=== PATIENT | female | born 1995 | race Caucasian/White ===

== ENCOUNTER 2020-03-13 02:28 | Emergency (ER) | payer OTHER, MEDICAID ==
[~2020-03-13] VITALS: Ht 167.6 cm; Wt 86.4 kg
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
--- NOTE | 2020-03-13 03:50 | NUR ---
Pt denies any thoughts of wanting to harm herself.
--- NOTE | 2020-03-13 04:00 | NUR ---
Patient brought from main ER. Patient is labile and resistant to care. Patient voides into hat. A sample was taken and sent for lab. This patient presents as developmentaly delayed. Patient requests ice water then refuses it once laying in bed. Patient is non compliant with bedside interview at this time.
[2020-03-13 04:07] LABS: BASOPHILS # (AUTO) 0.1 X10'3 (0-0.2); HEMOGLOBIN 15.1 g/dl (12.0-16.0); MEAN CORPUSCULAR VOLUME 93.4 FL (78-98)
[2020-03-13 04:09] LABS: BASOPHILS % (AUTO) 0.8 % (0-1); EOSINOPHILS % (AUTO) 0.1 % (0-6); HEMATOCRIT 44.4 % (35.0-45.0); LYMPHOCYTES # (AUTO) 2.3 X10'3 (1.1-4.8); MEAN CORPUSCULAR HEMOGLOBIN 31.7 PG (27.0-31.0); MEAN CORPUSCULAR HGB CONC 33.9 g/dL (33.0-36.5); MEAN PLATELET VOLUME 9.7 FL (7.4-10.4); MONOCYTES # (AUTO) 0.8 X10'3 (0-0.9); MONOCYTES % (AUTO) 6.3 % (2-12); NEUTROPHILS # (AUTO) 8.8 X10'3 (1.8-7.7); NEUTROPHILS % (AUTO) 73.8 % (42-75); PLATELET COUNT 151 X10'3 (140-440); RED BLOOD COUNT 4.76 X10'6 (4.20-5.60); RED CELL DISTRIBUTION WIDTH 14.9 % (11.5-14.5)
--- NOTE | 2020-03-13 04:14 | NUR ---
Nothing found on external med rec. Patient will not discuss S/I, H/I, possible hallucinations, or any other topic. Her GCS is 14 as reported by the inside sales lead.
[2020-03-13 04:42] LABS: URINE HCG NEGATIVE (NEG)
[2020-03-13 04:44] LABS: CLARITY,URINE CLEAR (Clear); COLOR,URINE YELLOW (Yellow); GLUCOSE, URINE NEGATIVE (Neg); KETONES,URINE NEGATIVE (Neg); LEUKOCYTE ESTERASE ,URINE NEGATIVE (Neg); NITRITES, URINE NEGATIVE (Neg); OCCULT BLOOD,URINE TRACE-INTACT (Neg); PH,URINE 6.5 (4.8-8.0); PROTEIN,URINE NEGATIVE (Neg)
[2020-03-13 04:51] LABS: UA COLLECTION TYPE CLN CATCH MIDSTREAM
[2020-03-13 04:52] LABS: BACTERIA,URINE 1+ /HPF (Neg); RBC,URINE 0-2 /HPF (0-2); SQUAMOUS EPITHELIAL CELL,UR FEW /LPF (FEW); WBC,URINE 0-4 /HPF (0-4)
[2020-03-13 05:17] LABS: URINE AMPHETAMINE SCREEN NEGATIVE (Neg); URINE BARBITUATE SCREEN NEGATIVE (Neg); URINE BENZODIAZEPINES SCREEN NEGATIVE (Neg); URINE CANNABINOID SCREEN POSITIVE (Neg); URINE COCAINE SCREEN NEGATIVE (Neg); URINE METHADONE SCREEN NEGATIVE (Neg); URINE OPIATE SCREEN NEGATIVE (Neg); URINE PHENCYCLIDINE SCREEN NEGATIVE (Neg)
--- NOTE | 2020-03-13 07:00 | NUR ---
Resting with eyes closed; arm band placed on patient. Was unable to state the year she was born but was able to state month and date and her age.
[2020-03-13 07:44] LABS: ALANINE AMINOTRANSFERASE 341 U/L (12-78); ALBUMIN 3.7 G/DL (3.4-5.0); ALBUMIN/GLOBULIN RATIO 1.1 (1.1-1.5); ALKALINE PHOSPHATASE 59 IU/L (46-116); ANION GAP 9 (8-16); ASPARTATE AMINO TRANSFERASE 105 U/L (10-37); BILIRUBIN,TOTAL 0.6 MG/DL (0.1-1.0); BLOOD UREA NITROGEN 11 MG/DL (7-18); BUN/CREATININE RATIO 20.8 (6.6-38.0); CALCIUM 9.1 MG/DL (8.5-10.1); CHLORIDE 105 MMOL/L (99-107); CREATININE 0.53 MG/DL (0.40-0.90); GLUCOSE 99 MG/DL (70-104); POTASSIUM 3.7 MMOL/L (3.5-5.1); SODIUM 139 MMOL/L (135-145); TOTAL CARBON DIOXIDE 24.7 MMOL/L (24-32); TOTAL PROTEIN 7.2 G/DL (6.4-8.2); eGFR > 90 ML/MIN
[2020-03-13 07:55] LABS: ETHANOL < 0.010 GM/DL (0.0-0.010)
--- NOTE | 2020-03-13 08:30 | NUR ---
Sitting up in bed eating breakfast. Not making full sense or communicate effectively
--- NOTE | 2020-03-13 11:01 | NUR ---
PACKET FAXED TO [facility]
[2020-03-13] MEDS ORDERED: OLANZapine 2.5MG tablet PO STA (12:09)
[2020-03-13] MEDS ORDERED: risperiDONE 0.5mg tablet PO ONE (12:10)
[2020-03-13] MEDS ORDERED: LORazepam 2 mg/ml vial IM ONE (13:05)
[2020-03-13] MEDS ORDERED: LORazepam 1 MG tablet PO ONE (13:15)
--- NOTE | 2020-03-13 13:30 | NUR ---
Patient upset, pacing. Unable to complete an idea or sentence. Security at bedside as she is not able to easily redirect. Stating she needs to leave and go to a safe place. Given ativan per Dr Do and took po dose.
--- NOTE | 2020-03-13 14:00 | NUR ---
Patient now resting with eyes closed
--- NOTE | 2020-03-13 14:40 | NUR ---
Mother Misty contact # [phone]
--- NOTE | 2020-03-13 16:22 | NUR ---
Resting with eyes closed on left side, respirations normal
--- NOTE | 2020-03-13 16:58 | NUR ---
Resting with eyes closed on left side
[2020-03-13] MEDS ORDERED: NO HOME MEDS (17:12)
--- NOTE | 2020-03-13 19:00 | NUR ---
PT UP AT NURSES STATION REQUESTING TO SPEAK WITH TIN FROM [facility] . INSTRUCTED PT BACK TO BEDSIDE SHE IS INTERRUPTING CHANGE OF SHIFT REPORT . PT A BIT AGIATATED THAT SHE WAS REQUESTED TO RETURN TO BEDSIDE , BEGAN TO RAISE HER VOICE , WAS REDIRECTED TO MAKE DIFFERNET CHOICES , PT APOLIGIZED AND RETURNED [facility] TO BEDSIDE
--- NOTE | 2020-03-13 20:00 | NUR ---
Pt in bed sleeping supine . resp even unlabored . Pt in the direct line of site of nursing staff . will continue to monitor and reassess as needed aursable to touch
--- NOTE | 2020-03-13 20:15 | NUR ---
PT SLEEPING ON HER LEFT SIDE ASLEEP . RESP EVEN AND UNLABORED .
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
--- NOTE | 2020-03-13 23:01 | NUR ---
pt sleeping peacfully on her right side . hob elevated 30 degrees . pt resp even and unlabored . Pt in the direct line of site of nursing staff . will continue to monitor and reassess
--- NOTE | 2020-03-14 01:30 | NUR ---
PT SLEEPIN GPEACFULLY IN BED SUPINE RESP EVEN AND UNLABORED . PT IN THE DIRECT LINE OF SIGHT OF NURSING STAFF . WILL CONTINUE TO MONITOR AND REASSESS
--- NOTE | 2020-03-14 03:12 | NUR ---
PT AWAKE ASKING IF SHE CAN CALL THE RESIDENTIAL . ADVISED PT THAT SHE WILL NOT BE ABLE TO MAKE PERSONAL PHONE CALLS UNTIL AFTER 7 . PT ASKING TO SPPEK WITH [facility] " TIN " SO SHE CAN FIGURE OUT HOW TO GET HER BELONGINGS AND WHERE SHE IS GOING TO GO . PT REPOSTS TO THIS RECORDER THAT SHE WOULDNT MIND GOING BACK TI [place] WHERE MOTHER IS , BUT NEEDS 2 WEEKS TO GATHER HER BELONGINGS
--- NOTE | 2020-03-14 04:28 | NUR ---
PT AWAKE AND UP TO THE BATHRROM / PT REPORTS SHE WOULD LIKE TO BE ABLE TO CALL THE ASSISTED IN AM . PT REPORTS THAT SHE NEEDS 1 WEEK TO GATHER HER BELONGINGS AND SHE WOULD BE WILLING TO TRAVEL BACK TO [place] HER MOTHER RESIDES.
--- NOTE | 2020-03-14 06:32 | NUR ---
Assumed care of patient, pt. sleeping in bed at this time, rr even and unlabored.
--- NOTE | 2020-03-14 08:33 | NUR ---
Attempted to awaken pt. for breakfast, however she refused at this time and continues to sleep. Currently laying on left side, rr even and unlabored.
[2020-03-14] MEDS ORDERED: acetaminophen 325mg tablet PO PRN ×2 (09:25)
[2020-03-14] MEDS ORDERED: mag hydrox/Alum hydrox/simeth 30ml oral suspension PO PRN (09:25)
[2020-03-14] MEDS ORDERED: magnesium hydroxide 30ml (MOM) UD suspension PO PRN (09:25)
--- NOTE | 2020-03-14 10:30 | NUR ---
Pt. up and requesting to leave at this time, this check writer salesperson provided education to pt. that she currently has nowhere to go and she will be transferring upstairs to [facility] who will continue to work with her regarding fining placement. Pt. became slightly agitated and stated, "Just send me to the [facility]! My clothes are out there and my ID!" This check writer salesperson assured pt. that all of her belongings will be transferred upstairs with her and she was able to be redirected. However, pt. remained slightly agitated and refused to participate in 1:1 assessment, she stated, "Don't talk to me!" Pt. remains slightly confused and uncooperative. Pt. lay down and proceeded to return back to sleep, will continue to monitor.
[2020-03-14] MEDS ORDERED: LORazepam 1 MG tablet PO ONE (11:35)
[2020-03-14] MEDS ORDERED: olanzapine 10mg tablet PO SCH (11:35)
--- NOTE | 2020-03-14 11:47 | NUR ---
Pt. again becoming agitated with increased apparent psychosis at this time. She approaches the nurse's station and asks this grant writer her name, pt. then states in a non-senseical way, "You're not her, I know her! She has long black hair!" Pt. then requests to talk to [facility] to show them the "safety plan" she has for discharge (pt. has written a long letter in [facility]). Pt. up pacing in front of the nurse's station looking for [facility] and had to be directed back to her room. She continued to be agitated with increased psychosis, obtained order for one-time Ativan 1mg and Zyprexa 10mg. Pt. accepted medication with some reluctance and then proceeded to lay back down, will monitor. Requesting to call her mother at this time.
--- NOTE | 2020-03-14 12:30 | NUR ---
Pt. standing at the nurse's station requesting that staff call her "Friend" who is in [facility]p to see if he is still there, call placed and it was determined that this friend is still in [facility]p. Pt. then requested to call her mother and had a lengthy conversation with her regurding her desire to "leave [facility]." Pt's mother expressed to this advertising copy writer that she would like her daughter to get treatment for her chronic mental health condition. Pt. then returned to her bed and was compliant with eating lunch. Will continue to monitor.
--- NOTE | 2020-03-14 14:29 | NUR ---
Pt. sleeping at this time, laying on her left side, rr even and unlabored.
--- NOTE | 2020-03-14 14:56 | NUR ---
Pt. transferred to [facility] via w/c by Peyman Lopez and accompanied by security. Report given to CHACHO Kohler and accepting is Myles. Pt. continues to be slightly agitated, confused, and appears to be paranoid delusional during transfer.
[2020-03-14 15:00] VITALS: BP 117/59
== END 2020-03-14 15:05 ==
LOC: ER 02:29
DX: F79 Unspecified intellectual disabilities (principal); R51.9 Headache, unspecified
CPT/HCPCS: 36415; 80053; 80305; 80320; 81001; 81025; 84443; 85025; 99285

== ENCOUNTER 2020-03-14 10:11 | Inpatient (IN) | payer MEDICAID, OTHER ==
[~2020-03-14] VITALS: Ht 167.6 cm; Wt 79.7 kg
[~2020-03-14 10:11] MED LIST: NO HOME MEDS
[2020-03-14] MEDS ORDERED: acetaminophen 325mg tablet PO PRN (15:20)
[2020-03-14] MEDS ORDERED: traZODone 50mg tablet PO PRN (15:20)
[2020-03-14] MEDS ORDERED: loperamide 2mg capsule PO PRN (15:20)
[2020-03-14] MEDS ORDERED: mag hydrox/Alum hydrox/simeth 30ml oral suspension PO PRN (15:20)
[2020-03-14] MEDS ORDERED: magnesium hydroxide 30ml (MOM) UD suspension PO PRN (15:20)
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
[2020-03-14 16:25] VITALS: BP 122/79
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
[2020-03-15 08:50] LABS: HEMOGLOBIN A1C 5.4 % (4.5-6.2)
[2020-03-15 08:57] LABS: CHOL/HDL RATIO 2.7 (0.00-4.99); CHOLESTEROL 199 MG/DL (0-200); HDL CHOLESTEROL 73 MG/DL (35-60); LDL CHOLESTEROL 108 MG/DL (50-100); TRIGLYCERIDES 83 MG/DL (20-135)
[2020-03-15] MEDS: LORazepam 1 MG tablet PO PRN (14:27)
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
[2020-03-15] MEDS: diphenhydrAMINE 25mg capsule PO ONE ×2 (16:25→16:33)
[2020-03-15] MEDS: haloperidol 5mg tablet PO ONE ×2 (16:25→16:35)
[2020-03-15] MEDS: LORazepam 1 MG tablet PO ONE ×2 (16:34→17:50)
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
[2020-03-15 19:48] VITALS: BP 117/75
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
[2020-03-16 07:11] VITALS: BP 104/49
[2020-03-16] MEDS: acetaminophen 325mg tablet PO PRN (13:45)
[2020-03-16] MEDS: LORazepam 1 MG tablet PO PRN (13:45)
[2020-03-16] MEDS ORDERED: clonazePAM 1mg tablet PO ONE (15:10)
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
[2020-03-16] MEDS: OLANZAPINE 5 MG TABLET PO PRN (18:47)
[2020-03-16 19:19] VITALS: BP 107/83
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
[2020-03-17 07:49] VITALS: BP 103/67
[2020-03-17] MEDS ORDERED: haloperidol lactate 5mg/ml inj ONE (12:02)
[2020-03-17] MEDS ORDERED: diphenhydrAMINE 50 mg/ml inj ONE (12:02)
[2020-03-17] MEDS ORDERED: LORazepam 2 mg/ml vial ONE (12:03)
--- NOTE | 2020-03-17 12:03 | NUR ---
INCREASED AGITATION AND PSYCHOSIS The patient became increasingly agitated and psychotic with disorganized and tangential speech throughout morning. Wanting to leave and persistently pleading her case of reasons why she should be discharged. When asked specific questions about how she would find food and [facility] she would squint her eyes and say "it was all a mistake, I just need car insurance, you took my yogurt." Behaviors increased after talking to Provider as she was informed she was being placed on a 5250. She was trying to get through the door and knocking on door where Provider was seeing another patient. She began to dance around seductively and then put her fists up as posturing with Charge Nurse. Attempts were made to calm patient by offering a hot shower, or to return to her room. P.O. medications were offered for psychosis and anxiety but the patient refused. She was mumbling to herself and appeared to be agitated and responding to internal stimuli. When asked if she was hearing voices she would not answer and appeared to be experiencing thought blocking. The Provider ordered an IM injection. The patient was helped over to her bed at which time she laid down and accepted the IM injection without incident or difficulty. Within 30 minutes of administration the patient was calm, awake and sitting on her bed eating her lunch and in no distress.
--- NOTE | 2020-03-17 13:45 | NUR ---
RESTING CALMLY The patient ate lunch and is now resting comfortably in her bed and appears to be sleeping. No distress or agitation.
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
[2020-03-17 20:00] VITALS: BP 98/53
[2020-03-17] MEDS ORDERED: risperiDONE 0.5mg tablet PO SCH (21:00)
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
[2020-03-18 07:31] VITALS: BP 119/62
[2020-03-18] MEDS: acetaminophen 325mg tablet PO PRN (10:45)
[2020-03-18] MEDS: OLANZAPINE 5 MG TABLET PO PRN (10:45)
[2020-03-18] MEDS: LORazepam 1 MG tablet PO PRN (10:46)
[2020-03-18] MEDS: clonazePAM 1mg tablet PO PRN (13:17)
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
[2020-03-18 20:00] VITALS: BP 97/52
[2020-03-18] MEDS: ARIPIPRAZOLE 10 MG TABLET PO SCH (21:00)
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
[2020-03-19 07:34] VITALS: BP 111/61
[2020-03-19] MEDS: clonazePAM 1mg tablet PO PRN ×2 (09:03→19:42)
--- NOTE | 2020-03-19 10:30 | NUR ---
Initial: Pt admit DX schizoaffective d/o, bipolar type on 5250 hold per EMR. PO 75-100% avg regular diet meeting needs. Daily BM's per EMR. No nutrition concerns at this time. Will continue to monitor. Rec: 1. continue regular diet 2. bowel care per rx 3. wt per rx Addendum: 03/19/20 at [address] Amended: Links added.
[2020-03-19] MEDS: LORazepam 1 MG tablet PO PRN ×2 (13:06→14:06)
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
[2020-03-19 19:00] VITALS: BP 116/66
[2020-03-19] MEDS: ARIPIPRAZOLE 10 MG TABLET PO SCH (21:00)
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
[2020-03-20 07:48] VITALS: BP 108/72
[2020-03-20] MEDS: LORazepam 1 MG tablet PO PRN ×2 (08:38→20:25)
--- NOTE | 2020-03-20 10:00 | NUR ---
Group Therapy: Process Group This Clinicians goals for this process group were as follows: (1) Ask scaling questions about patients current anxiety, depression, and irritability symptoms as a check-in. (2) Share psychoeducation about three rules of brief solution-focused problem-solving: A) Stop doing what clearly isnt working, B) Do something different, C) If the different activity works, then do more of it. If it doesnt work, then go back to principle A). (3) Identify examples of thoughts, activities, and behaviors that people do that no longer work for them, or they create more problems than solutions. (4) Identify examples of thoughts, activities, and behaviors that may help create better emotional/behavioral outcomes and lead to good solutions to problems. (5) Engage patients in discussion of the topics shared within the group milieu. Milieu staff was present during the process group to monitor Patient behaviors. Patient identified experiencing the following levels of anxiety, depression, and anger/irritability while present in the group milieu (0-low; 10-High). Anxiety: "I'm fine."10 Depression: 0/10 Anger/irritability: 3/10 Patient presented as properly oriented x4 during the process group. Patient was dressed in nondescript, personal clothing that were appropriate within the milieu. Psychomotor activity was unremarkable. Patient's thought content was clear, and concrete. Patient's thought process was clear, circumstantial, and slightly disorganized. Patient described that a problem behavior that she sometimes experienced was, "Losing focus," on certain tasks that she had to do that required focused detail. This Clinician did not observe Patient responding to any internal stimuli during session. The rate, latency, and tone of Patients speech was within normal limits. Patients speech was clear, and coherent. Patient maintained intermittent eye contact with this Clinician. Patient presented in calm euthymic mood, with blunted affect during the process group. Patient presented as cooperative, verbally engaged when addressed by this Clinician, and nonobtrusive within the group milieu. Patient occasionally would interject comments, and questions, about the subject matter on brief solution-focused, problem-solving thinking strategies while this Clinician was discussing it. On a few occasions, this Clinician attempted to address Patient directly and she did not say anything in response to this Clinician. Lisandro Rdz MA, PHOTO PRINTER Addendum: 03/20/20 at 1145 by Lisandro Rdz SS Amended: Links added.
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
[2020-03-20] MEDS: clonazePAM 1mg tablet PO PRN (16:01)
--- NOTE | 2020-03-20 16:53 | NUR ---
Nursing Note: Following court hearing, pt. agitated and PRN Clonazepam administered. She the requested to file and Writ and paperwork given.
[2020-03-20 20:00] VITALS: BP 99/59
[2020-03-20] MEDS: ARIPIPRAZOLE 10 MG TABLET PO SCH (20:25)
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
[2020-03-21 07:56] VITALS: BP 135/60
--- NOTE | 2020-03-21 10:00 | NUR ---
Group Therapy: Process Group This Clinicians goals for this process group were as follows: (1) Ask scaling questions about Patients current anxiety, depression, and irritability symptoms as a check-in. (2) Share psychoeducation about the importance of being able to identify regular activities, support people, and thoughts (Anchors) that contribute to mental health well-being and stability. (3) Share psychoeducation about how the gradual removal of said activities, people and behaviors may lead to the erosion of mental well-being and stability. (4) Encourage patients to identify support anchors that they need to maintain in their lives that will promote their mental and emotional well-being. (5) Engage Patients in discussion of the topics shared within the group milieu. Patient presented as properly oriented to person, and place during the process group. Patient was dressed in nondescript, matching black personal clothing that were appropriate within the milieu. Psychomotor activity was unremarkable. Patient presented as disruptive during the process group. She wandered in-and-out of the process group on several different occasions. On the last such occasion she began writing something on a piece of paper. Shortly thereafter, as this Clinician was leading the group, Patient loudly interrupted, "God Damn! I'd wish you shut up! I'm trying to write!" Due to this interruption this Clinician asked Patient to leave group. She initially refused to leave, but left at the request of milieu staff after approximately 30 seconds of verbal prompting. She did not return. Patient did not participate during the process group discussion on grounding interventions (anchors) that one could utilize to maintain optimal/baseline mental health. Lisandro Rdz MA, AUTOCAD ELECTRICAL DESIGNER Addendum: 03/21/20 at 1146 by Lisandro Rdz Amended: Links added.
[2020-03-21] MEDS: clonazePAM 1mg tablet PO PRN ×2 (10:29→18:40)
[2020-03-21] MEDS: LORazepam 1 MG tablet PO PRN (14:59)
[2020-03-21] MEDS: acetaminophen 325mg tablet PO PRN (15:03)
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
[2020-03-21 20:30] VITALS: BP 137/82
[2020-03-21] MEDS: ARIPIPRAZOLE 10 MG TABLET PO SCH (21:00)
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
[2020-03-22 08:00] VITALS: BP 101/54
[2020-03-22] MEDS: clonazePAM 1mg tablet PO PRN ×2 (09:21→16:05)
--- NOTE | 2020-03-22 10:00 | NUR ---
Group Therapy: Process Group This Clinicians goal for this process group were as follows: (1) Share psychoeducation about core beliefs and how these beliefs shapes how one views reality. (2) Compare and contrast how people with different core beliefs might interpret an identical situation differently. (3) Discuss how changing negative core beliefs to more balanced, helpful, and rational alternatives can lead to improved behaviors and mood. (4) Process patients thoughts and reflections on this topic within the group milieu. Patient identified experiencing the following levels of anxiety, depression, and anger/irritability while present in the group milieu (0-low; 10-High). Anxiety: "I took a pill." 05/31 Depression: 0 Anger/irritability: "I'm annoyed as hell." 12/29 Patient presented as properly oriented x4 during the process group. Patient was dressed in nondescript, personal clothing that were appropriate within the milieu. She wore a dark top, and green hospital scrub bottoms. Psychomotor activity was unremarkable. Patient brought a book with her into the group milieu that she sometimes looked at. Patient's thought content was disorganized and marked by thought-blocking. This Clinician observed that she had difficulties finishing complete thoughts and frequently asked for points of clarification, which she had a difficult time asking for coherently. Patient's thought process was disorganized, and fragmented. Per this Clinician's impression, Patient had a hard time understanding the metaphor of wearing, "Different glasses," as a way of discussing how different core beliefs can filter how one views situations. More specifically, she interrupted this Clinician on one occasion, noting how it would be difficult for her to get new classes because her Mother was, "Far away." This Clinician did not observe Patient responding to any internal stimuli during session. The rate, latency, and tone of Patients speech was within normal limits. Patients speech was clear, and understandable. Patient maintained intermittent eye contact with this Clinician. Patient presented in calm euthymic mood, with blunted affect during the process group. Patient presented as open, cooperative, verbally engaged, and nonobtrusive within the group milieu. Lisandro Rdz MA, MORTGAGE SERVICING SPECIALIST Addendum: 03/22/20 at 1126 by Lisandro HARRIS Amended: Links added.
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
[2020-03-22 19:53] VITALS: BP 110/54
[2020-03-22] MEDS: ARIPIPRAZOLE 10 MG TABLET PO SCH (21:00)
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
[2020-03-23] MEDS: clonazePAM 1mg tablet PO PRN (04:50)
[2020-03-23 08:00] VITALS: BP 100/47
--- NOTE | 2020-03-23 09:51 | NUR ---
DISCHARGE PLANNING Jeri plans on staying at the [facility]. Provided her with [employer] application at her request. She currently has [employer] insurance. Provided her with information on the [facility]. Encouraged her to follow up with her [place] provider. EUNICE Hutchison
--- NOTE | 2020-03-23 10:37 | NUR ---
CONGRESSIONAL AIDE NOTE: Patient was discharged at 1029 and was walked to [facility] by PETRA Ying. Patient was alert and ambulated independently. Pt is being discharged to the mission. Patient left all personal belongings. Reviewed discharge instructions and encouraged pt to follow up with [facility] office. Rotary Pump Operator also encouraged pt to contact her mother when she gets out. Pt verbalized understanding. Pt had an abrasion on left lateral side of ankle. Rotary Pump Operator cleaned and placed bandage to cover. Pt declined any other intervention.
== END 2020-03-23 10:29 | disposition home or self-care (01) | DRG 885 ==
LOC: ADULT MH 14:59
PROVIDERS: ADMIT Psychiatry & Neurology Psychiatry; ATTEND Psychiatry & Neurology Psychiatry
DX: F25.0 Schizoaffective disorder, bipolar type (principal); F41.9 Anxiety disorder, unspecified; F60.9 Personality disorder, unspecified; Z91.19 Patient's noncompliance with other medical treatment and regimen; Z56.0 Unemployment, unspecified; Z82.41 Family history of sudden cardiac death
CPT/HCPCS: 36415; 80061; 83036; 87081; J1200; J1630; J2060; Q0163